=== PATIENT | male | born 1960 | race Caucasian/White ===

== ENCOUNTER → 2018-05-27 | Outpatient (CLI) | payer OTHER ==
[~2018-05-27] MED LIST: ASPIR 8181 MG PO; ATORVASTATIN CA40 MG PO; AUGMENTIN 875875 MG PO; AVAPRO300 MG PO; BRILINTA90 MG PO; CARVEDILOL12.5 MG PO; CLEOCIN HCL150 MG PO; CLONIDINE HCL0.3 M3 PO; CORICIDIN COLD1 EACH PO; FLEXERIL PO; LIDOCAINE VISC100 M1 SWISH&SPIT; MEDROLDOSEPACK PO; NAPROSYN500 MG PO; NITROGLYCERIN0.4 MG SUBLING; NORVASC5 MG PO; PERCOCET 7.5-31 EACH PO; PERCOCET PO; PROAIR HFA8.5 GM INH; TESSALON PERLE100 MG PO; TIZANIDINE HCL 22 MG PO; TUSSIONEX PENN473 ML PO; ZPAK PO
== END ==
LOC: NUC 08:04
DX: I25.10 Atherosclerotic heart disease of native coronary artery without angina pectoris (principal); E78.5 Hyperlipidemia, unspecified; I10 Essential (primary) hypertension; I48.91 Unspecified atrial fibrillation